=== PATIENT | male | born 1980 | race Caucasian/White ===

== ENCOUNTER → 2021-01-10 | Outpatient (CLI) | payer OTHER ==
[~2021-01-10] MED LIST: ATIVAN0.5 MG PO; CLEOCIN HCL300 MG PO
== END ==
LOC: HEART 5 01-09 08:00
DX: R00.2 Palpitations (principal)

== ENCOUNTER → 2021-05-27 | Outpatient (CLI) | payer OTHER | LOC: ECHO 13:45 → HEART 5 15:00 | DX: I47.1 Supraventricular tachycardia (principal) | CPT/HCPCS: ECHO; 93306 ==